=== PATIENT | female | born 1930 | race Caucasian/White ===

== ENCOUNTER → 2017-07-19 | Outpatient (CLI) | payer OTHER | LOC: BMCIMAGING 13:00 | PROVIDERS: ATTEND Internal Medicine | DX: M79.672 Pain in left foot (principal); M79.89 Other specified soft tissue disorders ==

== ENCOUNTER → 2017-11-04 | Outpatient (CLI) | payer OTHER | LOC: BMCIMAGING 12:54 | PROVIDERS: ATTEND Internal Medicine | DX: M79.672 Pain in left foot (principal); M25.572 Pain in left ankle and joints of left foot; M79.89 Other specified soft tissue disorders ==

== ENCOUNTER 2017-12-30 13:12 | Inpatient (IN) | payer OTHER ==
[2017-12-30] MEDS ORDERED: NS 1,000 ML IV ONE (13:42)
--- NOTE | 2017-12-30 13:49 | EDPHY ---
H & P Stated Complaint: INCREASED BP MED/HYPOTENSION Time Seen by Provider: 12/30/17 13:23 HPI/ROS: CHIEF COMPLAINT: Pre syncope HISTORY OF PRESENT ILLNESS: The patient is an 87-year-old female with a history of hypertension who recently had her enalapril doubled to twice daily during a doctor's visit 2 weeks ago. Since that time she has been a little spacey according to her family. She had a fall this morning causing some abrasions to her back and right elbow. Her daughter in-law was taking her to the urgent care but when she got out of the car she was pre syncopal daughter had to catch her. She denies head injury or neck injury. She denies chest pain or shortness of breath or palpitations. No nausea vomiting or diarrhea. She has been urinating normally. She does not feel dehydrated. Blood pressure here triage was low. She reports that is typically a normal range. She did however skip her blood pressure medicine yesterday evening. No recent fevers or infections. The patient also has a history of chronic low back pain. She is receiving physical therapy for this. She states that her chronic low back pain is unchanged from baseline as has been present for several years. REVIEW OF SYSTEMS: Constitutional: denies: chills, fever, recent illness, recent injury EENTM: denies: blurred vision, double vision, nose congestion Respiratory: denies: cough, shortness of breath Cardiac: denies: chest pain, irregular heart rate, lightheadedness, palpitations Gastrointestinal/Abdominal: denies: abdominal pain, diarrhea, nausea, vomiting, blood streaked stools Genitourinary: denies: dysuria, frequency, hematuria, pain Musculoskeletal: denies: joint pain, muscle pain Skin: See HPI Neurological: denies: headache, numbness, paresthesia, tingling, dizziness, weakness Hematologic/Lymphatic: denies: blood clots, easy bleeding, easy bruising Immunologic/allergic: denies: HIV/AIDS, transplant EXAM: GENERAL: Well-appearing, well-nourished and in no acute distress. HEAD: Atraumatic, normocephalic. EYES: Pupils equal round and reactive to light, extraocular movements intact, sclera anicteric, conjunctiva are normal. ENT: TMs normal, nares patent, oropharynx clear without exudates. Moist mucous membranes. NECK: Normal range of motion, supple without lymphadenopathy or JVD. LUNGS: Breath sounds clear to auscultation bilaterally and equal. No wheezes rales or rhonchi. HEART: Regular rate and rhythm without murmurs, rubs or gallops. ABDOMEN: Soft, nontender, normoactive bowel sounds. No guarding, no rebound. No masses appreciated. BACK: No CVA tenderness, no spinal tenderness, step-offs or deformities, minor abrasions to upper back laterally EXTREMITIES: Normal range of motion, no pitting or edema. No clubbing or cyanosis. NEUROLOGICAL: Cranial nerves II through XII grossly intact. Normal speech, normal gait. 5/5 strength, normal movement in all extremities, normal sensation , no tremors, normal reflexes PSYCH: Normal mood, normal affect. SKIN: Very minor abrasions to upper back and right elbow, small contusion to right triceps region. Source: Patient - Personal History Current Tetanus Diphtheria and Acellular Pertussis (TDAP): Unsure - Medical/Surgical History Hx Asthma: No Hx Chronic Respiratory Disease: No Hx Diabetes: No Hx Cardiac Disease: No Hx Renal Disease: No Hx Cirrhosis: No Hx Alcoholism: No Hx HIV/AIDS: No Hx Splenectomy or Spleen Trauma: No Other PMH: HTN/DENTAL SURGERY - Family History Significant Family History: No pertinent family hx - Social History Smoking Status: Never smoked Alcohol Use: Sober Drug Use: None Constitutional: Initial Vital Signs Temperature (C) 36.6 C 12/30/17 13:17 Heart Rate 87 12/30/17 13:17 Respiratory Rate 16 12/30/17 13:17 Blood Pressure 88/68 L 12/30/17 13:17 O2 Sat (%) 96 12/30/17 13:17 O2 Delivery Mode Room Air Allergies/Adverse Reactions: Penicillins Allergy (Verified 12/30/17 13:17) Home Medications: Medication Instructions Recorded Acetaminophen [Tylenol ES 500 mg 1,000 mg PO Q6H PRN 12/30/17 (*)] Cholecalciferol Vit D3 [Vitamin D3 2,000 units PO DAILY 12/30/17 (*)] Enalapril Maleate [Vasotec 10 MG 10 mg PO BID 12/30/17 (*)] Herbals/Supplements -Info Only 1 ea PO DAILY 12/30/17 Ibuprofen [Motrin (*)] 600 mg PO TID PRN 12/30/17 Medical Decision Making - Diagnostics EKG Interpretation: An EKG obtained and was read and documented in trace view. Please see trace view for full reading and report. Sinus rhythm, first-degree block, diffuse repolarization abnormality ED Course/Re-evaluation: Here in the room the patient's blood pressure is 96/57. She tells me that she is currently asymptomatic. I will obtain testing for presyncopal symptoms. Daughter in-law also requests that we check her urine. The patient denies dysuria or frequency. 3:20 p.m. Patient has provided a urine sample. I performed a rectal exam with a field application engineer. She has black tarry stool the we sent to the lab for analysis. I have paged hospitalist for admission. She is significantly anemic and moderately hypotensive although that has now improved to 117/56 with fluids. She also has a bumped troponin. 3:25 p.m. I discussed the case with Dr. Alejandra who will admit. Differential Diagnosis: Partial list of the Differential diagnosis considered include but were not limited to; anemia, hypotension, medication reaction, acute coronary disease and although unlikely based on the history and physical exam, I also considered arrhythmia, CVA, seizure. - Data Points Laboratory Results: Laboratory Results 12/30/17 13:50 12/30/17 13:50 12/30/17 12/30/17 12/30/17 15:10 13:50 13:50 WBC RBC Hgb Hct MCV MCH MCHC RDW Plt Count MPV Neut % (Auto) Lymph % (Auto) [place] % (Auto) Eos % (Auto) Baso % (Auto) Nucleat RBC Rel Count Absolute Neuts (auto) Absolute Lymphs (auto) Absolute Monos (auto) Absolute Eos (auto) Absolute Basos (auto) Absolute Nucleated RBC Immature Gran % Immature Gran # PT 14.9 SEC SEC (12.0-15.0) INR 1.15 (0.83-1.16) APTT 25.2 SEC SEC (23.0-38.0) Sodium 146 mEq/L H mEq/L (135-145) Potassium 3.9 mEq/L mEq/L (3.3-5.0) Chloride 112 mEq/L H mEq/L (97-110) Carbon Dioxide 26 mEq/l mEq/l (22-31) Anion Gap 8 mEq/L mEq/L (8-16) BUN 56 mg/dL H mg/dL (7-23) Creatinine 0.8 mg/dL mg/dL (0.6-1.0) Estimated GFR > 60 Glucose 111 mg/dL H mg/dL (70-100) Calcium 10.1 mg/dL mg/dL (8.5-10.4) Total Bilirubin 0.5 mg/dL mg/dL (0.1-1.4) Conjugated Bilirubin 0.2 mg/dL mg/dL (0.0-0.5) Unconjugated Bilirubin 0.3 mg/dL mg/dL (0.0-1.1) AST 19 IU/L IU/L (14-46) ALT 24 IU/L IU/L (9-52) Alkaline Phosphatase 81 IU/L IU/L (38-126) Troponin I 0.138 ng/mL H ng/mL (0.000-0.034) Total Protein 5.6 g/dL L g/dL (6.3-8.2) Albumin 3.4 g/dL L g/dL (3.5-5.0) Urine Color YELLOW Urine Appearance CLEAR Urine pH 5.0 (5.0-7.5) Ur Specific [place] 1.018 (1.002-1.030) Urine Protein NEGATIVE (NEGATIVE) Urine Ketones NEGATIVE (NEGATIVE) Urine Blood NEGATIVE (NEGATIVE) Urine Nitrate NEGATIVE (NEGATIVE) Urine Bilirubin NEGATIVE (NEGATIVE) Urine Urobilinogen NEGATIVE EU EU (0.2-1.0) Ur Leukocyte Esterase TRACE H (NEGATIVE) Urine RBC 1-3 /hpf /hpf (0-3) Urine WBC 3-5 /hpf H /hpf (0-3) Ur Epithelial Cells TRACE /lpf /lpf (NONE-1+) Urine Glucose NEGATIVE (NEGATIVE) 12/30/17 13:50 WBC 14.36 10^3/uL H 10^3/uL (3.80-9.50) RBC 2.77 10^6/uL L 10^6/uL (4.18-5.33) Hgb 8.5 g/dL L g/dL (12.6-16.3) Hct 25.3 % L % (38.0-47.0) MCV 91.3 fL fL (81.5-99.8) MCH 30.7 pg pg (27.9-34.1) MCHC 33.6 g/dL g/dL (32.4-36.7) RDW 14.7 % % (11.5-15.2) Plt Count 175 10^3/uL 10^3/uL (150-400) MPV 11.6 fL fL (8.7-11.7) Neut % (Auto) 80.3 % H % (39.3-74.2) Lymph % (Auto) 11.4 % L % (15.0-45.0) [place] % (Auto) 7.4 % % (4.5-13.0) Eos % (Auto) 0.2 % L % (0.6-7.6) Baso % (Auto) 0.3 % % (0.3-1.7) Nucleat RBC Rel Count 0.0 % % (0.0-0.2) Absolute Neuts (auto) 11.54 10^3/uL H 10^3/uL (1.70-6.50) Absolute Lymphs (auto) 1.63 10^3/uL 10^3/uL (1.00-3.00) Absolute Monos (auto) 1.06 10^3/uL H 10^3/uL (0.30-0.80) Absolute Eos (auto) 0.03 10^3/uL 10^3/uL (0.03-0.40) Absolute Basos (auto) 0.04 10^3/uL 10^3/uL (0.02-0.10) Absolute Nucleated RBC 0.00 10^3/uL 10^3/uL (0-0.01) Immature Gran % 0.4 % % (0.0-1.1) Immature Gran # 0.06 10^3/uL 10^3/uL (0.00-0.10) PT INR APTT Sodium Potassium Chloride Carbon Dioxide Anion Gap BUN Creatinine Estimated GFR Glucose Calcium Total Bilirubin Conjugated Bilirubin Unconjugated Bilirubin AST ALT Alkaline Phosphatase Troponin I Total Protein Albumin Urine Color Urine Appearance Urine pH Ur Specific [place] Urine Protein Urine Ketones Urine Blood Urine Nitrate Urine Bilirubin Urine Urobilinogen Ur Leukocyte Esterase Urine RBC Urine WBC Ur Epithelial Cells Urine Glucose Medications Given: Potassium Chloride/Dextrose/Sod Cl (D5w 1/2 Ns W/ 20 Kcl/L) 1,000 mls @ 100 mls /hr IV CONT CARO Stop: 06/28/18 16:14 Last Admin: 12/30/17 17:57 Dose: 1,000 mls Discontinued Medications Sodium Chloride (Ns) 1,000 mls @ 0 mls/hr IV EDNOW ONE; Wide Open PRN Reason: Protocol Stop: 12/30/17 13:43 Last Admin: 12/30/17 14:00 Dose: 1,000 mls Departure - Departure Disposition: [facility] Inpatient Acute Clinical Impression: Anemia Qualifiers: Anemia type: iron deficiency Iron deficiency anemia type: chronic blood loss Qualified Code(s): D50.0 - Iron deficiency anemia secondary to blood loss ( chronic) Hypotension Qualifiers: Hypotension type: unspecified hypotension type Qualified Code(s): I95.9 - Hypotension, unspecified GI bleed Qualifiers: GI bleed type/associated pathology: melena Qualified Code(s): K92.1 - Melena Condition: Fair
[2017-12-30 14:05] LABS: PLATELET COUNT 175 10^3/uL (150-400)
[2017-12-30 14:14] LABS: INR 1.15 (0.83-1.16); PROTIME(PATIENT) 14.9 SEC (12.0-15.0)
--- NOTE | 2017-12-30 14:23 | CPEKG ---
Heart Rate: 83 RR Interval: 723 P-R Interval: 255 QRSD Interval: 86 QT Interval: 408 QTC Interval: 480 P [place]: 0 QRS [place]: 64 T Wave [place]: 212 EKG Severity - ABNORMAL ECG - EKG Impression: SINUS RHYTHM EKG Impression: FIRST DEGREE AV BLOCK EKG Impression: NONSPECIFIC REPOL ABNORMALITY, DIFFUSE LEADS Electronically Signed By: Angel Mckay 30-Dec-2017 15:00:19
[2017-12-30] MEDS ORDERED: ACETAMINOPHEN 500 MG TAB PO PRN (16:12)
[2017-12-30] MEDS ORDERED: ONDANSETRON 4 MG/2 ML VIAL IVP PRN (16:13)
[2017-12-30] MEDS ORDERED: D5W 1/2 NS W/ 20 KCl/L 1,000 ML IV SCH (16:15)
--- NOTE | 2017-12-30 16:33 | GHP ---
[f rep st] HISTORY AND PHYSICAL DATE OF ADMISSION: 12/30/2017 CHIEF COMPLAINT: Fall. HISTORY OF PRESENT ILLNESS: This is an 87-year-old female with history of back pain, polio as a chil d, questionable TIA 15 years ago, and neuropathy who was brought to the emergency department today af ter she sustained a fall at home. She was getting out of bed to go to her bathroom when she fell, la nding on her back. The patient denies any loss of consciousness. She lives with her adult children. She stated that she did not eat very well yesterday. She has been losing weight. They have notice d that she typically only eats bread and does not consume much protein. She has had back pain for th e past few days which she has been treating with Tylenol and ibuprofen. Patient has been having some constipation. She denies having any bloody stools or melena. However, she was found to have heme-p ositive stools in the emergency department. Patient is unable to tell me when her last colonoscopy w as done, and I am unsure if she has ever had one. PAST MEDICAL HISTORY: 1. Back pain. 2. Polio as a child. 3. TIA more than 10 years ago. 4. Neuropathy. 5. Diverticulitis. 6. Hypertension. PAST SURGICAL HISTORY: Dental surgery. HOME MEDICATIONS: Reviewed. Refer to adaffix for details. ALLERGIES: Penicillin. SOCIAL HISTORY: She lives with her adult children and moved from [place] a few months ago. She den ies any alcohol, tobacco, or illicit drug use. FAMILY HISTORY: Reviewed and noncontributory. REVIEW OF SYSTEMS: Comprehensive 10-point review of systems was done and was negative except for wha t was mentioned in HPI and below. CARDIOVASCULAR: Denies chest pain or short shortness of breath. PHYSICAL EXAM: VITAL SIGNS: Blood pressure 81/45, pulse 91, respiratory rate 18, O2 saturation 96% on room air. GENERAL: Cachectic. HEAD: Normocephalic, atraumatic. EYES: PERRLA. Sclerae anicte jenelle. MOUTH: Moist mucous membranes. Poor dentition. There are dentures on the uppers. NECK: Sup ple. No lymphadenopathy. CARDIOVASCULAR: S1, S2. No JVD. No lower extremity edema. PULMONARY: Lungs are clear. No wheezes, rales, or rhonchi. ABDOMEN: Soft, nontender, nondistended. No guardi ng or rebound tenderness. Normoactive bowel sounds. EXTREMITIES: No clubbing or cyanosis. NEURO: Cranial nerves 2-12 grossly intact. No focal motor or sensory deficits. SKIN: There is a skin tea r, right buttock, and abrasion on her right elbow. LABORATORY DATA: WBCs 14.3, hemoglobin 8.5, hematocrit 25.3, platelets 175. Coags unremarkable. So dium 146 potassium 3.9, chloride 112, BUN 56, creatinine 0.8, glucose 111. LFTs unremarkable. Tropo arielle elevated at 0.138, total protein 5.6, albumin 3.4. UA: Trace leukocyte esterase, 3-5 WBCs. EKG which I visualized and personally interpreted, shows sinus rhythm, rate 83 beats per minute. Some i rregular ST changes in v3 through v6. ASSESSMENT/PLAN: This is an 87-year-old female presenting with: 1. Status post fall. 2. Anemia with heme-positive stool in the emergency department. Suspect upper gastrointestinal blee d given her elevated BUN and recent ibuprofen use. 3. Leukocytosis with trace leukocyte esterase on urinalysis without symptoms of urinary tract infect ion. 4. Elevated troponin without complaints of chest pain. Rule out acute coronary syndrome. 5. Weight loss. 6. back pain. PLAN: 1. Admit to the medical-surgical floor. 2. Serial H and H. 3. Cycle troponins. 4. Monitor for signs and symptoms of infection and treat with antibiotics. 5. Consult GI for endoscopy. 6. Iron studies. 7. Plain films of the T- and L-spines to look for fracture. 8. The patient requests to be DNR status. /[id number]/MODL
--- NOTE | 2017-12-30 17:29 | PDMN ---
Medical Necessity Medical necessity: C/M review: est. > 2 MN LOS for eval and TX of Acute anemia , heme positive stool in ED, suspect upper gastrointestinal bleed, leukocytosis with trace leukocyte esterase on UA without symptom of urinary tract infection, elevated troponin without complaints of cheat pain, weight loss, back pain requiring planned GI consult for future endoscopy, Wound Care consult, echocardiogram, plain cira of the thoracic and lumbar spines to eval for possible fracture, cycle troponins, iron studies, ongoing serial Hgb / Hct, NPO , IV fluids, IV Protonix, cardiac monitoring, acute inpt PT/OT, comorbid fall just prior to this admission, history of back pain, polio as a child, TIA more than 10 years ago, neuropathy, diverticulitis, hypertension per H/P.
[2017-12-30] MEDS: PANTOPRAZOLE SODIUM 40 MG VIAL IVP SCH (21:31)
[2017-12-31] MEDS: PANTOPRAZOLE SODIUM 40 MG VIAL IVP SCH (08:31)
[2017-12-31] MEDS ORDERED: EPINEPHrine 1 MG/ML INJ ONE (08:51)
--- NOTE | 2017-12-31 08:55 | GCON ---
[f rep st] CONSULTATION REFERRING PHYSICIAN: Augustine Alejandra DO CHIEF COMPLAINT: An 87-year-old woman with anemia, elevated BUN, with GI bleed. HISTORY OF PRESENT ILLNESS: This is a very pleasant 87-year-old woman who has a history of back pain . She has been having also recent problems with shoulder pain. She has had polio as a child. She h ad prior TIA about 15 years ago. She has neuropathy. She lives with her children. She had fallen a t home without syncope. She was brought to the emergency department for further evaluation. She den ied any abdominal pain or discomfort. She had no nausea or vomiting. She does have a history of ref lux symptoms that she treats as needed with antacids. She has no prior history of ulcer disease. Sh e denies any change in bowel habits. No significant problems with diarrhea. She does have occasiona l constipation, but no significant problems with her bowel habits. She has noticed no hematochezia o r melenic stool. She did have heme-positive stool in the emergency department. She may have had a c olonoscopy in the past. Records are not available. Unclear of the date. She was found to have a he matocrit of 25.6, with a normal creatinine 0.7 and elevated BUN of 28. She has been taking frequent ibuprofen for shoulder pain and back pain. Patient was hemodynamically stable. Patient admitted to the hospital for further management. Asked to see patient for presumed GI bleed. PAST MEDICAL HISTORY: Remarkable for hypertension, polio as a child, chronic back pain, previous CA, neuropathy, diverticulosis, and a history of diverticulitis. PAST SURGICAL HISTORY: Remarkable for some dental surgery. No abdominal surgeries. MEDICATIONS: Prior to admission included ibuprofen and Vasotec. ALLERGIES: Penicillin. SOCIAL HISTORY: She lives with her adult children, moved from [place] a few months ago. Nonsmoker and nondrinker. FAMILY HISTORY: Negative as it pertains to chief complaint. REVIEW OF SYSTEMS: Negative for 10 systems, other than mentioned in HPI. PHYSICAL EXAM: VITAL SIGNS: 81/45. Pulse is 91, respiratory rate 18, oxygen 96% on room air. GENE RAL: Very pleasant, elderly woman in no acute distress. HEENT: Normocephalic, atraumatic. EOMI. NECK: Supple. No scleral icterus. ENT: Mouth, mucous membranes moist, edentulous. NECK: Supple. No cervical adenopathy. No thyromegaly. LUNGS: Clear. CARDIAC: Normal S1, S2, without murmur. ABDOMEN: Soft, benign, nontender. No hepatosplenomegaly. EXTREMITIES: Without clubbing, cyanosis , edema. SKIN: Warm, dry, intact. NEURO: Nonfocal. PSYCH: Alert and oriented x3, with a normal affect. LABORATORY DATA: White count of 14.3, hemoglobin 18.5, hematocrit 25.3, platelets 175,000. Sodium 1 46, potassium 3.9, chloride 112, BUN of 56, creatinine 0.8, blood sugar 111. LFTs were normal. IMPRESSION: Elderly 87-year-old woman, hemodynamically stable, with drop in hematocrit, elevated BUN , questionable gastrointestinal bleed secondary to nonsteroidal anti-inflammatory drugs, peptic ulcer disease, gastritis. RECOMMENDATIONS: N.p.o., serial H and H, IV Protonix 40 mg q.12. proceed with urgent endoscopy. Wi ll follow with you. /[id number]/MODL
[2017-12-31] MEDS ORDERED: fentaNYL 100 MCG/2 ML INJ ONE (08:56)
[2017-12-31] MEDS ORDERED: MIDAZOLAM 2 MG/2 ML VIAL ONE (08:56)
[2017-12-31] MEDS ORDERED: NS 500 ML IV ONE (09:09)
--- NOTE | 2017-12-31 09:38 | GIREPORT ---
[facility] - Endoscopy Department Patient Name: Lexie Yuen Procedure Date: 12/31/2017 8:43 AM Patient Type: Inpatient Attending MD/ ER Physician: Harvinder Gore MD Procedure: Upper GI endoscopy Indications: Acute post hemorrhagic anemia, Heme positive stool, Suspected upper gastrointestinal bleeding Providers: Harvinder Gore MD Medicines: Fentanyl 50 micrograms IV, Midazolam 2 mg IV Complications: No immediate complications. Description of Procedure: After obtaining informed consent, the endoscope was passed under direct vision. Throughout the procedure, the patient's blood pressure, pulse, and oxygen saturations were monitored continuously. The Endoscope was intro duced through the mouth, and advanced to the second part of duodenum. The [facility] er GI endoscopy was accomplished without difficulty. The patient tolerated th e procedure well. Findings: The examined esophagus was normal. Esophagogastric landmarks were identified: the Z-line was found at 34 c m and the gastroesophageal junction was found at 34 cm from the incisors. One non-bleeding cratered gastric ulcer with no stigmata of bleeding wa s found on the lesser curvature of the gastric antrum. The lesion was 10 mm in largest dimension. Biopsies were taken with a cold forceps for histolog y. Biopsies were also taken in the antrum and bodywith a cold forceps for histology for h.pylori. The examined duodenum was normal. Estimated Blood Loss: Estimated blood loss: none. Post Op Diagnosis: - Normal esophagus. - Esophagogastric landmarks identified. - Non-bleeding gastric ulcer with no stigmata of bleeding. Biopsied. - Normal examined duodenum. Recommendation: - Advance diet as tolerated today. - Use Protonix (pantoprazole) 40 mg PO daily. - Await pathology results. - Thank you for allowing me to participate in the care of your patient. Attending Participation: I personally performed the entire procedure. Harvinder Gore MD Harvinder Gore MD 12/31/2017 9:37:46 AM This report has been signed electronicallyStadeola Gore MD Number of Addenda: 0 Note Initiated On: 12/31/2017 8:43 AM [email or web address]
--- NOTE | 2017-12-31 11:40 | HOSPPROG ---
Hospitalist Progress Note Assessment/Plan: # UGIB - s/p EGD with gastric ulcer, likely the source of bleeding - cont protonix PO - hold NSAIDs - ADAT # ABLA - d/t above, s/p 1U PRBC - recheck tonight and tomorrow am # indet trop without CP - strongly suspect d/t demand - echo pending - consider ischemic eval as outpatient # chronic back pain - trial APAP, lidoderm, voltaren Subjective: s/p EGD with non bleeding ulcer Objective: Vital Signs Temp Pulse Resp BP Pulse Ox 36.5 C 62 14 144/61 H 91 L 12/31/17 10:15 12/31/17 10:15 12/31/17 10:15 12/31/17 10:15 12/31/17 10:15 Laboratory Results 12/31/17 05:50 12/31/17 05:50 12/30/17 12/31/17 01/01/18 05:59 05:59 05:59 Intake Total 2060 100 Output Total 700 Balance 1360 100 PT 14.9 SEC (12.0-15.0) 12/30/17 13:50 INR 1.15 (0.83-1.16) 12/30/17 13:50 high risk - Physical Exam Constitutional: no apparent distress, appears nourished Cardiovascular: regular rate and rhythym, no murmur, rub, or gallop Respiratory: no respiratory distress, no rales or rhonchi, clear to auscultation Gastrointestinal: normoactive bowel sounds, soft, non-tender abdomen, no palpable masses ICD10 Worksheet Patient Problems: Problems Problem Status Onset Anemia Acute Hypotension Acute GI bleed Acute
[2017-12-31] MEDS: LIDOCAINE 4%/MENTHOL 1% PATCH TD SCH (12:35)
[2017-12-31] MEDS: DICLOFENAC SODIUM 1% 100 GM GEL TP SCH ×3 (12:36→20:40)
--- NOTE | 2017-12-31 17:47 | ASMTCMCOM ---
CM Note CM Note Notes: Patient discussed during morning rounds. Patient is a 87 y/o woman with DNR status. Admitted after a fall and anemia with heme-positive stool. EGD performed showing gastric ulcer. Discussion around d/c NSAIDS and exploring other forms of pain control (lidocane patches). Son Junaid was present, POA, . Son stated she has a lot of support at home, they take her to home PT for back pain, brain class, he is a chiropractor who adjusts her if needed and her other son in law provides weekly acupuncture CM to follow. D/C plan: D/C date likely 01/01, independent d/c with family support. Date Signed: 12/31/2017 05:46 PM Electronically Signed By:Tiffany Hunt
[2017-12-31] MEDS: PANTOPRAZOLE SODIUM 40 MG TAB PO SCH (20:40)
[2017-12-31] MEDS ORDERED: PATCH REMOVAL 1 EA PATCH TD SCH (21:00)
[2018-01-01] MEDS: DICLOFENAC SODIUM 1% 100 GM GEL TP SCH ×2 (05:19→14:15)
--- NOTE | 2018-01-01 08:07 | ECHO ---
[email or web address] [address] [address] Main: [phone] Fax: Transthoracic Echocardiogram Name: WALE REYES MR#: [id number] Study Date: 12/31/2017 Study Time: 08:03 AM Date of : 1930 Age: 87 year(s) Height: ( ) Weight: ( ) BSA: Gender: Female Examination: Echo Indication: elevated trop eval for wall motion abnormality Image Quality: Adequate Contrast: Requested by: Augustine Alejandra BP: 129 mmHg/70 mmHg Heart Rate: Rhythm: Indication: elevated trop eval for wall motion abnormality Procedure Staff Technician Automatic: Ce Dan [facility] Reading Physician: Mau Carcamo MD Requesting Provider: Conclusions: Normal size left ventricle. Mild concentric LV hypertrophy. Normal global systolic LV function. The ejection fraction is visually estimated to be 70 %. No regional wall motion abnormality. Basal septal wall thickness of 1.34 cm. No significant LVOT gradient. . Normal RV function. The left atrium is mildly dilated. The right atrium is normal in size. Mild mitral valve regurgitation is present. Moderate aortic cusp calcification is present. No aortic valve stenosis is present. Mild to moderate aortic valve regurgitation. Peak aortic gradient 16 mmhg and mean of 10 mmHg with CHAPARRO of 2.04 cm2. The pulmonary artery pressure is moderately increased. RVSP 46 mmHg. RA pressure 10 mmhg. No pericardial effusion. Measurements: Chambers Valvular Assessment AV/MV Valvular Assessment TV/PV Normal Normal Normal Name Value Range Name Value Range Name Value Range Visual EF: 70 % AR (PHT): 533 ms ( - ) Continued Measurements: Chambers Patient: WALE REYES Study Date: 12/31/2017 Page 1 of 2 08:03 AM Name Value TAPSE: 2.4 cm Additional Vessels Name Value Inferior Vena Cava: 2.6 cm Findings: Left Ventricle: Normal size left ventricle. Mild concentric LV hypertrophy. No RIN is present. Normal global systolic LV function. The ejection fraction is visually estimated to be 70 %. No regional wall motion abnormality. Grade 2 diastolic dysfunction (pseudonormalized LV filling pattern). Basal septal wall thickness of 1.34 cm. No significant LVOT gradient. . Right Ventricle: Normal size right ventricle. Normal RV function. Left Atrium: The left atrium is mildly dilated. No atrial septal aneurysm. Right Atrium: The right atrium is normal in size. Mitral Valve: There is mild thickening of the mitral valve leaflets. Mild mitral annular calcification. Mild mitral valve regurgitation is present. No RIN is present. Aortic Valve: The aortic valve is tri-leaflet. Moderate aortic cusp calcification is present. No aortic valve stenosis is present. Mild to moderate aortic valve regurgitation. Peak aortic gradient 16 mmhg and mean of 10 mmHg with CHAPARRO of 2.04 cm2. Tricuspid Valve: The tricuspid valve appears normal. Mild tricuspid regurgitation is present. The pulmonary artery pressure is moderately increased. RVSP 46 mmHg. Pulmonic Valve: The pulmonic valve is normal in appearance and function. Aorta: Normal size aortic root. Normal size ascending aorta. IVC: RA pressure 10 mmhg. Pericardium: No pericardial effusion. (No Signature Object) Patient: WALE REYES Study Date: 12/31/2017 Page 2 of 2 08:03 AM [id number]
--- NOTE | 2018-01-01 09:05 | SOAPPROG ---
SOAP Progress Note Assessment/Plan: Assessment: GIB with Gastric ulcer on EGD yesterday. [place] ulcer without stigmata. Most likely NSAID induced. Biopsies pending. Plan: 1. Regular diet 2. PPI BID x 2 weeks then daily indefinably 3. Avoid NSAIDs if possible 4. will need follow up EGD in 8 weeks to document healing. Will sign off, please call with further questions. 01/01/18 09:10 Subjective: CC: GI Bleed, anemia, post hemorrhagic Patient clinically doing well. Tolerating PO, no abdominal pain, no acute signs of GI bleeding. Objective: Vital Signs Temp Pulse Resp BP Pulse Ox 36.5 C 64 17 112/72 95 01/01/18 07:55 01/01/18 07:55 01/01/18 07:55 01/01/18 07:55 01/01/18 07:55 Laboratory Results 01/01/18 03:42 12/31/17 05:50 12/31/17 01/01/18 01/02/18 05:59 05:59 05:59 Intake Total 2060 800 Output Total 700 1100 Balance 1360 -300 PT 14.9 SEC (12.0-15.0) 12/30/17 13:50 INR 1.15 (0.83-1.16) 12/30/17 13:50 Generic Name Dose Route Start Last Admin Trade Name Freq PRN Reason Stop Dose Admin Acetaminophen 1,000 mg 12/30/17 16:12 12/31/17 17:52 Tylenol PO 06/28/18 16:11 1,000 mg Q6H PRN Administration Pain, Mild Able to Take PO Diclofenac Sodium 2 gm 12/31/17 12:00 01/01/18 05:19 Diclofenac Sodium 1% Gel TP 06/29/18 11:59 2 gm QID CARO Administration Miscellaneous Information 1 ea 12/31/17 21:00 12/31/17 20:40 Patch Removal TD 06/29/18 20:59 1 ea DAILY21 CARO Administration Miscellaneous Medication 1 patch 12/31/17 11:45 12/31/17 12:35 Icy Hot Lidocaine/Menthol 4%/1% Patch TD 06/29/18 11:44 1 patch DAILY CARO Administration Ondansetron HCl 4 mg 12/30/17 16:13 Zofran IVP 06/28/18 16:12 Q4 PRN Nausea/Vomiting, Can't Take PO Pantoprazole Sodium 40 mg 12/31/17 21:00 12/31/17 20:40 Protonix PO 06/29/18 20:59 40 mg BID CARO Administration Discontinued Medications Generic Name Dose Route Start Last Admin Trade Name Barbra PRN Reason Stop Dose Admin Epinephrine HCl Confirm 12/31/17 08:51 Epinephrine Administered 12/31/17 08:52 Dose 1 mg .ROUTE .STK-MED ONE Fentanyl Confirm 12/31/17 08:56 Sublimaze Administered 12/31/17 08:57 Dose 200 mcg .ROUTE .STK-MED ONE Sodium Chloride 1,000 mls @ 0 mls/hr 12/30/17 13:42 12/30/17 14:00 Ns IV 12/30/17 13:43 1,000 mls EDNOW ONE Administration Protocol Wide Open Potassium Chloride/Dextrose/Sod Cl 1,000 mls @ 100 mls/hr 12/30/17 16:15 08/18 17:57 D5w 1/2 Ns W/ 20 Kcl/L IV 06/28/18 16:14 1,000 mls CONT CARO Administration Sodium Chloride 500 mls @ 25 mls/hr 12/31/17 09:09 12/31/17 09:21 Ns IV 01/01/18 05:08 500 mls ONCALL ONE Administration Midazolam HCl Confirm 12/31/17 08:56 Versed Administered 12/31/17 08:57 Dose 6 mg .ROUTE .STK-MED ONE Pantoprazole Sodium 40 mg 12/30/17 21:00 12/31/17 08:31 Protonix IVP 06/28/18 20:59 40 mg BID CARO Administration Physical Exam - Physical Exam General Appearance: alert, no apparent distress Respiratory: lungs clear Cardiac/Chest: regular rate, rhythm Abdomen: normal bowel sounds, non-tender, soft Skin: normal color, warm/dry Neuro/Psych: alert, normal mood/affect, oriented x 3 ICD10 Worksheet Patient Problems: Problems Problem Status Onset Anemia Acute GI bleed Acute Hypotension Acute
[2018-01-01] MEDS: LIDOCAINE 4%/MENTHOL 1% PATCH TD SCH (09:41)
[2018-01-01] MEDS: PANTOPRAZOLE SODIUM 40 MG TAB PO SCH (09:42)
[2018-01-01 11:46] VITALS: BP 155/71
--- NOTE | 2018-01-01 13:30 | GDS ---
[f rep st] DISCHARGE SUMMARY DISCHARGE DIAGNOSES: 1. Upper gastrointestinal bleed due to gastric ulcer. 2. Acute blood loss anemia, status post transfusion of 1 unit of packed red blood cells. 3. Indeterminate troponin without chest pain. 4. Chronic back pain. HOSPITAL COURSE: An 87-year-old female who presented after a syncopal episode, found to be hypotensi ve with significant anemia and positive fecal occult blood. She underwent an upper endoscopy, which revealed a gastric ulcer. Biopsy was taken and is pending at the time of discharge. Her hemoglobin dropped as low as 6.9. She received 1 unit of packed red blood cells. Subsequent hemoglobins have b een stable. She had an indeterminate troponin. She has no chest pain. She had an echocardiogram without wall mo tion abnormalities. Strongly suspect that this was demand ischemia in the setting of significant ane eliud and hypotension. Could consider an outpatient ischemic evaluation. She has chronic back pain, she had been taking ibuprofen. I instructed her to stop this. She can ta ke Tylenol. I have given a prescription for Lidoderm patch, as well as Voltaren gel. Given her refe rral to see [facility] for consideration of steroid injection if she would desire. She also will con debbie doing her physical therapy. I have discussed this with her son and [id number]. BILLING: I spent more than 30 minutes on the day of discharge coordinating care. /[id number]/MODL
--- NOTE | 2018-01-01 14:50 | ASMTLACE ---
LACE Length of stay for Answers: 1 day current admission Acuity / Level of Answers: Yes Care: Did the patient have an inpatient admission? Comorbidities - select Answers: Cerebrovascular disease all that apply (CVA, TIA, aneurysms, vasc ular dementia) History of falls # of Emergency department Answers: 1-2 visits in the last 6 months Score: 9 Date Signed: 01/01/2018 02:49 PM Electronically Signed By:Yue Ren RN
--- NOTE | 2018-01-01 14:53 | ASMTCMCOM ---
CM Note CM Note Notes: Patient has been medically cleared for discharge to home. There are no needs identified. CM availlable should needs arise. Plan: Home independent with family support. Date Signed: 01/01/2018 02:52 PM Electronically Signed By:Yue Ren RN
== END 2018-01-01 15:08 | disposition home or self-care (01) | DRG 378 ==
LOC: OBSVTOIN 15:29 → F2W 16:35
PROVIDERS: ADMIT Family Medicine; ATTEND Family Medicine
PROC: 30233N1 Transfusion of Nonautologous Red Blood Cells into Peripheral Vein, Percutaneous Approach (ICD-10-PCS; 2017-12-30)
PROC: 0DB68ZX Excision of Stomach, Via Natural or Artificial Opening Endoscopic, Diagnostic (ICD-10-PCS; principal; 2017-12-31 09:00)
DX: K28.4 Chronic or unspecified gastrojejunal ulcer with hemorrhage (principal); D62 Acute posthemorrhagic anemia; E86.9 Volume depletion, unspecified; G89.29 Other chronic pain; I10 Essential (primary) hypertension; G62.9 Polyneuropathy, unspecified; Z86.12 Personal history of poliomyelitis; Z86.73 Personal history of transient ischemic attack (TIA), and cerebral infarction without residual deficits
CPT/HCPCS: 97116-GP; 97161-GP; 97165-GO; 97530-GO; 97530-GP; 97535-GO; G8978-GP-CI; G8978-GP-CJ; G8979-GP-CI; G8980-GP-CI; G8987-GO-CK; G8988-GO-CJ; J0171; J2250; J3010; P9016

== ENCOUNTER → 2018-08-16 | Outpatient (CLI) | payer OTHER | LOC: FIMAGING 17:50 | PROVIDERS: ATTEND Psychiatry & Neurology Neurology | DX: R90.89 Other abnormal findings on diagnostic imaging of central nervous system (principal); G31.84 Mild cognitive impairment of uncertain or unknown etiology ==